=== PATIENT | male | born 1955 | race Caucasian/White ===

== ENCOUNTER 2018-11-12 11:59 | Emergency (ER) | payer OTHER ==
[~2018-11-12] VITALS: Ht 175.3 cm; Wt 68.0 kg
[2018-11-12] MEDS ORDERED: BP MED (12:16)
--- NOTE | 2018-11-12 12:20 | NUR ---
EMERSON Kaufman at the bedside for MSE.
[2018-11-12] MEDS ORDERED: ACETAMINOPHEN 325 MG TABLET ONE (12:29)
[2018-11-12] MEDS ORDERED: ACETAMINOPHEN 325 MG TABLET PO ONE (12:30)
--- NOTE | 2018-11-12 13:18 | NUR ---
Patient discharged to home in stable conditon. Written and verbal after care instructions given. Patient verbalizes understanding of instructions.
[2018-11-12 13:21] VITALS: BP 130/87
== END 2018-11-12 13:23 | disposition home or self-care (01) ==
LOC: ER 11:59
DX: S30.0XXA Contusion of lower back and pelvis, initial encounter (principal); J18.9 Pneumonia, unspecified organism; F17.290 Nicotine dependence, other tobacco product, uncomplicated; W01.0XXA Fall on same level from slipping, tripping and stumbling without subsequent striking against object, initial encounter; Y93.89 Activity, other specified; Y92.89 Other specified places as the place of occurrence of the external cause; Y99.8 Other external cause status
CPT/HCPCS: 71045; 72100; A4663